=== PATIENT | female | born 1965 | race Hispanic/Latino ===

== ENCOUNTER 2017-11-22 06:20 | Day surgery (SDC) | payer BC ==
[2017-11-10 12:07] VITALS: BMI 30.7
[2017-11-22 07:42] VITALS: RESP 18
[2017-11-22] MEDS ORDERED: Propofol 10 mg/ml Inj (20 ML) ONE ×2 (07:43→08:03)
[2017-11-22] MEDS ORDERED: Midazolam 2 MG/2 ML VIAL ONE (07:43)
[2017-11-22] MEDS ORDERED: Lactated Ringer's 1,000 ML IV SCH (08:30)
[2017-11-22 08:32] VITALS: TEMP 98.2
[2017-11-22 08:48] VITALS: O2SAT 99
[2017-11-22 10:31] VITALS: BP 120/65; PULSE 76
--- NOTE | 2017-11-22 11:12 | OP ---
PROCEDURE DATE: 11/22/2017 PREOPERATIVE DIAGNOSIS: Erosion of tension-free vaginal tape-obturator mesh. POSTOPERATIVE DIAGNOSIS: Erosion of tension-free vaginal tape-obturator mesh. PROCEDURE PERFORMED: Revision with excision of tension-free vaginal tape-obturator corner mesh. SURGEON: Aravind Rose MD. TYPE OF ANESTHESIA: General LMA. ESTIMATED BLOOD LOSS: Minimal. DESCRIPTION OF PROCEDURE: After informed consent was obtained and signed by the patient, the patient was brought into the operating room. The general LMA anesthesia was induced. The patient was prepped and draped in usual sterile fashion. Examination under anesthesia revealed the patient to have a previously placed TVT-O mesh. This mesh was placed approximately 11 years ago. 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 With the patient comfortably sedated, an Allis clamp was used to grasp the edge of the TVT-O mesh. Sharp dissection was used to undermine the mesh. Once the vaginal mucosa was lifted upwards, the mesh area was exposed, areas of this mesh were cut and removed. Using 2-0 Vicryl suture, the vaginal mucosa and the underlying muscularis were grasped and then sutured in 2 separate layers overriding the corner. Hemostasis was excellent throughout this entire time. Once this area was repaired, attention was turned to the remainder of the mesh site, which was found to be normal. No extrusions noted anywhere else. Decision to give the patient Premarin cream would be made and the patient will be asked to maintain this Premarin cream. The patient tolerated the procedure well, gently awakened, and sent to the recovery room in stable condition. Aravind Rose MD
== END 2017-11-22 10:40 | disposition home or self-care (01) ==
LOC: SDS 06:20
PROVIDERS: ATTEND Obstetrics & Gynecology Gynecology
DX: T83.711A Erosion of implanted vaginal mesh to surrounding organ or tissue, initial encounter (principal); Y83.8 Other surgical procedures as the cause of abnormal reaction of the patient, or of later complication, without mention of misadventure at the time of the procedure
CPT/HCPCS: 57287; J1100; J1885; J2001; J2250; J2405; J2704; J2765; J3010; J7120